=== PATIENT | female | born 1960 | race Caucasian/White ===

== ENCOUNTER 2017-01-08 12:53 | Emergency (ER) | payer BC ==
[~2017-01-08 12:53] MED LIST: ATIVAN0.5 M1 PO; ATIVAN1 MG PO; CELEBREX200 M1 PO; CENTRUM SILVER1 EAC3 PO; CYMBALTA60 M1 PO; CYMBALTA60 MG PO; DUONEB 2.5-0.5 M3 ML IH; ERYTHROMYCIN500 MG PO; FLEXERIL10 MG PO; KLONOPIN1 MG PO; LEVAQUIN750 M1 PO; LEVAQUIN750 MG PO; MOBIC15 MG PO; NEXIUM40 MG PO; PHENERGAN W/CO120 ML PO; PREDNISONE20 MG PO; PYRIDIUM200 M1 PO; RITALIN-SR20 MG PO; ROPINIROLE HCL4 MG PO; SONATA10 M1 PO; WELLBUTRIN XL300 M1 PO
[2017-01-08] MEDS ORDERED: NORCO 5-325 TA1 EACH PO (16:36)
== END 2017-01-08 17:09 ==
LOC: EDMED 12:53
PROC: 0PSJXZZ Reposition Left Radius, External Approach (ICD-10-PCS; principal; 2017-01-08)
DX: S52.502A Unspecified fracture of the lower end of left radius, initial encounter for closed fracture (principal); M25.561 Pain in right knee; F32.9 Major depressive disorder, single episode, unspecified; Z79.899 Other long term (current) drug therapy; F17.210 Nicotine dependence, cigarettes, uncomplicated; W18.30XA Fall on same level, unspecified, initial encounter; Y92.019 Unspecified place in single-family (private) house as the place of occurrence of the external cause
CPT/HCPCS: J2270; J2405